=== PATIENT | male | born 1960 | race Caucasian/White ===

== ENCOUNTER → 2020-01-16 | Outpatient (CLI) | payer OTHER ==
--- NOTE | 2020-01-16 14:55 | 2DMMODE ---
[place] [id number] 2 D/M-MODE ECHOCARDIOGRAM Name: KATHI MADRID Room: [facility]#: [id number] Admission: 01/16/20 Attend Phys: Alec Lawrence DO Discharge: Date of : 60 Date of Service: 01/16/20 1453 Report #: [id number] THIS REPORT FOR: cc: Alec Lawrence Adam J DO Liston, Michael J. MD [facility] ~ APPROVED REPORT Study performed: 01/16/2020 13:45:32 EXAM: Comprehensive 2D, Doppler, and color-flow Echocardiogram BSA: 2.53 HR: 58 bpm BP: 150/88 mmHg Other Information Study Quality: Good Indications Aortic Valve Disease Hypertension/HDD 2D Dimensions IVSd: 13.63 (7-11mm) LVOT Diam: 20.94 (18-24mm) LVDd: 48.05 mm PWd: 12.47 (7-11mm) Ascending Ao: 35.13 (22-36mm) LVDs: 28.52 (25-40mm) Aortic Root: 34.77 mm Volumes Left Atrial Volume (Systole) LA ESV Index: 20.80 mL/m2 Aortic Valve AoV Peak Marlon.: 3.10 m/s AO Peak Gr.: 38.35 mmHg LVOT Max P.81 mmHg AO Mean Gr.: 22.65 mmHg LVOT Mean P.21 mmHg LVOT Max V: 1.64 m/s AO V2 VTI: 63.30 cm LVOT Mean V: 1.04 m/s PALOMO (VTI): 1.85 cm2 LVOT V1 VTI: 33.98 cm Mitral Valve E/A Ratio: 0.73 [place] [id number] 2 D/M-MODE ECHOCARDIOGRAM Name: KATHI MADRID Room: [facility]#: [id number] Admission: 01/16/20 Attend Phys: Alec Lawrence DO Discharge: Date of : 60 Date of Service: 01/16/20 1453 Report #: [id number] MV Decel. Time: 273.50 ms MV E Max Marlon.: 0.76 m/s MV PHT: 79.31 ms MVA (PHT): 2.77 cm2 TDI E/Lateral E': 5.85 E/Medial E': 12.67 Medial E' Marlon.: 0.06 m/s Lateral E' Marlon.: 0.13 m/s Pulmonary Valve PV Peak Marlon.: 1.24 m/s PV Peak Gr.: 6.13 mmHg Tricuspid Valve RAP Estimate: 5.00 mmHg TR Peak Gr.: 36.36 mmHg RVSP: 41.36 mmHg PA Pressure: 41.36 mmHg Left Ventricle The left ventricle is normal size. There is normal LV segmental wall motion. Mild concentric left ventricular hypertrophy. Left ventricular systolic function is vigorous. LVEF is >70%. Transmitral Doppler flow pattern suggests impaired LV relaxation. Right Ventricle The right ventricle is normal size. The right ventricular systolic function is normal. Atria The left atrium size is normal. The right atrium size is normal. Aortic Valve The Aortic valve is sclerotic. No aortic regurgitation is present. Mild aortic stenosis. Mitral Valve The mitral valve is normal in structure. Mild mitral regurgitation. No evidence of mitral valve stenosis. Tricuspid Valve The tricuspid valve is normal in structure. Trace tricuspid regurgitation[place] [address] 2 D/M-MODE ECHOCARDIOGRAM Name: KATHI MADRID Room: [facility]#: [id number] Admission: 01/16/20 Attend Phys: Alec Lawrence DO Discharge: Date of : 60 Date of Service: 01/16/20 1453 Report #: [id number] The pulmonary valve is normal in structure. There is no pulmonic valvular regurgitation. Great Vessels The aortic root is normal in size. IVC is normal in size and collapses >50% with inspiration. Pericardium There is no pericardial effusion. <Conclusion> The left ventricle is normal size. Mild concentric left ventricular hypertrophy. Left ventricular systolic function is vigorous. LVEF is >70%. Transmitral Doppler flow pattern suggests impaired LV relaxation. The Aortic valve is sclerotic. Mild aortic stenosis. Trace tricuspid regurgitation. IVC is normal in size and collapses >50% with inspiration. <ELECTRONICALLY SIGNED> By: Michael Omer MD, FACC 01/16/20 1453 1453 1453 Michael Omer MD, FACC /INF
== END ==
LOC: M.CRD 12-26 08:00
DX: I08.0 Rheumatic disorders of both mitral and aortic valves (principal); I10 Essential (primary) hypertension